=== PATIENT | female | born 1955 | race Caucasian/White ===

== ENCOUNTER 2016-09-29 17:10 | Emergency (ER) | payer OTHER ==
[~2016-09-29] VITALS: Ht 157.5 cm; Wt 56.7 kg
[2016-09-29 17:26] VITALS: BP 141/71
== END 2016-09-29 17:40 | disposition home or self-care (01) ==
LOC: ER 17:13
DX: K05.10 Chronic gingivitis, plaque induced (principal); B49 Unspecified mycosis
CPT/HCPCS: 99281; A4606; Z7610; Z7502